=== PATIENT | female | born 1995 | race Caucasian/White ===

== ENCOUNTER 2017-05-16 23:08 | Emergency (ER) | payer OTHER ==
[~2017-05-16] VITALS: Ht 162.6 cm; Wt 50.0 kg
[~2017-05-16 23:08] MED LIST: ENDOCET 5-3251 EACH PO; KEFLEX500 MG PO; MOTRIN800 MG PO; Seroquel; ZANTAC150 MG PO
== END 2017-05-17 01:05 | disposition home or self-care (01) ==
LOC: EME 23:08
PROC: 0HQFXZZ Repair Right Hand Skin, External Approach (ICD-10-PCS; principal; 2017-05-16)
DX: S61.216A Laceration without foreign body of right little finger without damage to nail, initial encounter (principal); W26.0XXA Contact with knife, initial encounter
CPT/HCPCS: 99281; 99284

== ENCOUNTER 2017-05-19 14:31 | Emergency (ER) | payer OTHER ==
[~2017-05-19] VITALS: Ht 165.1 cm; Wt 54.8 kg
[2017-05-19] MEDS ORDERED: BACTRIM,SEPT1 TABLET PO (16:00)
[2017-05-19 16:10] VITALS: BP 127/77
== END 2017-05-19 16:12 | disposition home or self-care (01) ==
LOC: EME 14:31
DX: S61.216A Laceration without foreign body of right little finger without damage to nail, initial encounter (principal); L08.9 Local infection of the skin and subcutaneous tissue, unspecified; W26.0XXA Contact with knife, initial encounter; F17.200 Nicotine dependence, unspecified, uncomplicated
CPT/HCPCS: 99281; 99283

== ENCOUNTER 2017-07-22 15:31 | Emergency (ER) | payer OTHER ==
[~2017-07-22] VITALS: Ht 165.1 cm; Wt 54.5 kg
[~2017-07-22 15:31] MED LIST changes: +BACTRIM,SEPT1 TABLET PO
[2017-07-22 15:52] VITALS: BP 146/86
[2017-07-22] MEDS ORDERED: ULTRACET1 TABLET PO (16:25)
[2017-07-22] MEDS ORDERED: PERCOCET 5/31 TABLET PO (17:03)
== END 2017-07-22 16:50 | disposition home or self-care (01) ==
LOC: EME 15:31
DX: S66.901A Unspecified injury of unspecified muscle, fascia and tendon at wrist and hand level, right hand, initial encounter (principal); X58.XXXA Exposure to other specified factors, initial encounter; F17.200 Nicotine dependence, unspecified, uncomplicated
CPT/HCPCS: 99281; 99283

== ENCOUNTER 2017-08-05 10:46 | Emergency (ER) | payer OTHER ==
[~2017-08-05] VITALS: Ht 165.1 cm; Wt 49.9 kg
[~2017-08-05 10:46] MED LIST changes: +PERCOCET 5/31 TABLET PO; +ULTRACET1 TABLET PO
[2017-08-05] MEDS ORDERED: ENDOCET 5-3251 EACH PO (13:03)
[2017-08-05 13:34] VITALS: BP 162/99
== END 2017-08-05 13:35 | disposition home or self-care (01) ==
LOC: EME 10:46
DX: M79.644 Pain in right finger(s) (principal); M25.531 Pain in right wrist; M25.511 Pain in right shoulder; M79.89 Other specified soft tissue disorders; S56.12 Laceration of flexor muscle, fascia and tendon of other and unspecified finger at forearm level; W45.8XXS Other foreign body or object entering through skin, sequela; F17.200 Nicotine dependence, unspecified, uncomplicated
CPT/HCPCS: 99281; 99284

== ENCOUNTER 2017-08-29 11:28 | Emergency (ER) | payer OTHER ==
[~2017-08-29] VITALS: Ht 167.6 cm; Wt 52.4 kg
[2017-08-29 12:01] LABS: ADD MIUA? NO; BILIRUBIN NEGATIVE; BLOOD NEGATIVE; COLOR STRAW ((YELLOW)); GLUCOSE (STRIP) NEGATIVE; KETONES NEGATIVE; LEUKOCYTES NEGATIVE; NITRITE NEGATIVE; PROTEIN (STRIP) NEGATIVE; SPECIFIC GRAVITY 1.011 (1.000-1.030); UCUL ADDED? NO; UROBILINOGEN 0.2 MG/DL (0.2-1.0)
[2017-08-29 12:06] LABS: HEMATOCRIT 41.7 % (36.0-46.0); MCH 31.3 PG (29.0-34.0); MCHC 34.1 G/DL (30.0-36.0); MCV 92.1 FL (83-99); PLATELET COUNT 133 K/uL (156-360); RBC DIS.WIDTH-CV 11.9 % (11.8-14.6); RBC DIS.WIDTH-SD 40.6 % (39-53); RED BLOOD COUNT 4.53 M/uL (3.80-5.20); WHITE BLOOD COUNT 5.5 K/uL (4.1-10.2)
[2017-08-29 12:16] LABS: CHLORIDE 106 mEq/L (99-109); POTASSIUM 4.3 mEq/L (3.7-5.4); SODIUM 137 mEq/L (136-147)
[2017-08-29 12:18] LABS: GLUCOSE 109 mg/dL (70-99)
[2017-08-29 12:19] LABS: ANION GAP 7 MEQ/L (2-14)
[2017-08-29 12:20] LABS: TOTAL BILIRUBIN 0.2 mg/dL (0.0-1.0)
[2017-08-29 12:22] LABS: ALKALINE PHOSPHATASE 43 IU/L (3-129); GFR ESTIMATE (CALCULATED) > 59 mL/min/
[2017-08-29 12:23] LABS: UREA NITROGEN (BUN) 11 mg/dL (9-23)
[2017-08-29 15:32] VITALS: BP 108/63
[2017-09-03] MEDS ORDERED: KLONOPIN0.5 M1 PO (18:06)
[2017-09-03] MEDS ORDERED: VALTREX1000 MG PO (18:07)
[2017-09-03] MEDS ORDERED: RISPERIDONE0.5 MG PO (18:07)
== END 2017-08-29 15:33 | disposition home or self-care (01) ==
LOC: EME 11:28
DX: O09.11 Supervision of pregnancy with history of ectopic pregnancy, first trimester (principal); R10.2 Pelvic and perineal pain; O99.331 Smoking (tobacco) complicating pregnancy, first trimester; Z3A.01 Less than 8 weeks gestation of pregnancy; Z32.01 Encounter for pregnancy test, result positive; F17.200 Nicotine dependence, unspecified, uncomplicated
CPT/HCPCS: 76801; 80053; 81003; 84702; 85027; 99281; 99283

== ENCOUNTER → 2017-09-03 | Outpatient (CLI) | payer OTHER ==
[~2017-09-03] VITALS: Ht 166.4 cm; Wt 55.5 kg
[~2017-09-03] MED LIST changes: +KLONOPIN0.5 M1 PO; +RISPERIDONE0.5 MG PO; +VALTREX1000 MG PO
[2017-09-03 18:02] VITALS: BP 141/90
== END | disposition home or self-care (01) ==
LOC: IVINF 17:30
DX: Z31.82 Encounter for Rh incompatibility status (principal); O03.9 Complete or unspecified spontaneous abortion without complication
CPT/HCPCS: 96372

== ENCOUNTER 2017-10-12 12:14 | Emergency (ER) | payer OTHER ==
[~2017-10-12] VITALS: Ht 165.1 cm; Wt 51.5 kg
[2017-10-12 13:04] LABS: HEMATOCRIT 43.8 % (36.0-46.0); MCH 31.2 PG (29.0-34.0); MCV 91.6 FL (83-99); MEAN PLAT.VOLUME 11.1 uM^3 (9.5-12.4); PLATELET COUNT 150 K/uL (156-360); RBC DIS.WIDTH-SD 40.4 % (39-53); RED BLOOD COUNT 4.78 M/uL (3.80-5.20); WHITE BLOOD COUNT 5.4 K/uL (4.1-10.2)
[2017-10-12 13:20] LABS: CHLORIDE 105 mEq/L (99-109); SODIUM 136 mEq/L (136-147)
[2017-10-12 13:22] LABS: GLUCOSE 100 mg/dL (70-99)
[2017-10-12 13:24] LABS: ANION GAP 8 MEQ/L (2-14); TOTAL BILIRUBIN 0.6 mg/dL (0.0-1.0)
[2017-10-12 13:26] LABS: ALKALINE PHOSPHATASE 44 IU/L (3-129); GFR ESTIMATE (CALCULATED) > 59 mL/min/
[2017-10-12 13:27] LABS: UREA NITROGEN (BUN) 9 mg/dL (9-23)
[2017-10-12 13:38] LABS: QUANTITATIVE HCG 73.3 MIU/ML
[2017-10-12 13:50] LABS: ADD MIUA? YES; BILIRUBIN NEGATIVE; BLOOD NEGATIVE; COLOR YELLOW ((YELLOW)); GLUCOSE (STRIP) NEGATIVE; KETONES NEGATIVE; LEUKOCYTES NEGATIVE; NITRITE NEGATIVE; PROTEIN (STRIP) NEGATIVE; SPECIFIC GRAVITY 1.016 (1.000-1.030); UROBILINOGEN 0.2 MG/DL (0.2-1.0)
[2017-10-12 14:15] LABS: BACTERIA RARE /HPF; EPITHELIAL CELLS 1+ /HPF; MUCUS TRACE /LPF; RED BLOOD CELLS 0-5 /HPF (0-5); UCUL ADDED? NO; WHITE BLOOD CELLS 0-5 /HPF (0-5)
[2017-10-12 18:13] VITALS: BP 112/67
== END 2017-10-12 18:15 | disposition home or self-care (01) ==
LOC: EME 12:14
DX: O20.0 Threatened abortion (principal); F17.200 Nicotine dependence, unspecified, uncomplicated; Z3A.00 Weeks of gestation of pregnancy not specified
CPT/HCPCS: 76856; 80053; 81003; 83030; 84702; 85027; 86850; 86900; 86901; 99281; 99284; J2790

== ENCOUNTER → 2017-10-16 | Outpatient (CLI) | payer OTHER ==
[~2017-10-16] VITALS: Ht 166.4 cm; Wt 55.5 kg
[2017-10-16 16:09] VITALS: BP 114/71
== END | disposition home or self-care (01) ==
LOC: IVINF 15:30
DX: Z31.82 Encounter for Rh incompatibility status (principal); O20.0 Threatened abortion; Z3A.00 Weeks of gestation of pregnancy not specified
CPT/HCPCS: J2790

== ENCOUNTER → 2018-04-04 | Outpatient (CLI) | payer OTHER ==
[~2018-04-04] VITALS: Ht 165.1 cm; Wt 65.5 kg
[2018-04-04 08:47] VITALS: BP 125/82
== END | disposition home or self-care (01) ==
LOC: IVINF 08:30
DX: Z34.80 Encounter for supervision of other normal pregnancy, unspecified trimester (principal); Z31.82 Encounter for Rh incompatibility status; Z3A.00 Weeks of gestation of pregnancy not specified; Z67.91 Unspecified blood type, Rh negative
CPT/HCPCS: 96372; J2790

== ENCOUNTER 2018-06-03 18:51 | Outpatient (CLI) | payer OTHER ==
[2018-06-03 19:09] VITALS: BP 135/84
[2018-06-03 19:22] VITALS: BP 114/67
[2018-06-03] MEDS ORDERED: PRENATAL TABLE1 EAC3 PO (19:44)
[2018-06-03 20:07] LABS: BASOPHIL (%) 0.1 % (0-1); EOSINOPHIL (%) 0.4 % (0-5); HEMATOCRIT 30.8 % (36.0-46.0); HEMOGLOBIN 10.4 G/DL (11.9-15.5); IMMATURE GRANULOCYTE (%) 0.5 % (0.0-0.7); LYMPHOCYTE (%) 21.5 % (15-42); LYMPHOCYTE COUNT 1.7 K/uL (1.0-2.8); MCH 28.5 PG (29.0-34.0); MCHC 33.8 G/DL (30.0-36.0); MCV 84.4 FL (83-99); MONOCYTE (%) 6.4 % (3-12); MONOCYTE COUNT 0.5 K/uL (0-0.8); NEUTROPHIL (%) 71.1 % (45-76); NEUTROPHIL COUNT 5.7 K/uL (1.8-6.4); PLATELET COUNT 147 K/uL (156-360); RBC DIS.WIDTH-CV 12.6 % (11.8-14.6); RBC DIS.WIDTH-SD 38.5 % (39-53); RED BLOOD COUNT 3.65 M/uL (3.80-5.20)
[2018-06-03 20:25] LABS: ALBUMIN 3.4 G/DL (3.2-4.8); CHLORIDE 105 MEQ/L (99-109); POTASSIUM 4.1 MEQ/L (3.7-5.4); SODIUM 135 MEQ/L (136-147); TOTAL BILIRUBIN 0.4 MG/DL (0.0-1.0)
[2018-06-03 20:30] LABS: ALKALINE PHOSPHATASE 114 IU/L (3-129); ALT (GPT) 11 IU/L (3-49); AST (GOT) 12 IU/L (2-34); CREATININE 0.5 MG/DL (0.6-1.3); GFR ESTIMATE (CALCULATED) > 59 mL/min/; GLUCOSE 89 mg/dL (70-99); TOTAL PROTEIN 6.1 G/DL (6.4-8.3); UREA NITROGEN (BUN) 9 mg/dL (9-23)
[2018-06-03 20:43] VITALS: BP 105/64
[2018-06-03 22:00] LABS: AMPHETAMINE NEGATIVE (500 ng/mL); BARBITURATES NEGATIVE (200 ng/mL); BENZODIAZEPINES NEGATIVE (150 ng/mL); BUPRENORPHINE NEGATIVE (10 ng/mL); COCAINE NEGATIVE (150 ng/mL); METHADONE NEGATIVE (200 ng/mL); METHAMPHETAMINE NEGATIVE (500 ng/mL); OPIATES (MORPHINE) NEGATIVE (100 ng/mL); OXYCODONE NEGATIVE (100 ng/mL); PHENCYCLIDINE NEGATIVE (25 ng/mL); PROPOXYPHENE NEGATIVE (300 ng/mL); THC CANNABINOIDS NEGATIVE (50 ng/mL); TRICYCLIC ANTIDEPRESSANTS NEGATIVE (300 ng/mL)
[2018-06-04 00:29] LABS: APPEARANCE SL.HAZY ((CLEAR)); BILIRUBIN NEGATIVE; BLOOD NEGATIVE; COLOR STRAW ((YELLOW)); GLUCOSE (STRIP) NEGATIVE; KETONES NEGATIVE; LEUKOCYTES LARGE; NITRITE NEGATIVE; PROTEIN (STRIP) NEGATIVE; SPECIFIC GRAVITY 1.002 (1.000-1.030); UROBILINOGEN 0.2 MG/DL (0.2-1.0)
[2018-06-04 00:46] LABS: BACTERIA RARE /HPF; EPITHELIAL CELLS 1+ /HPF; MUCUS NONE SEEN /LPF; RED BLOOD CELLS NONE SEEN /HPF (0-5)
== END 2018-06-03 21:25 | disposition home or self-care (01) ==
LOC: LDRP-OP 18:51 → 2WEST 18:56
PROVIDERS: Advanced Practice Midwife
DX: O36.8130 Decreased fetal movements, third trimester, not applicable or unspecified (principal); O99.343 Other mental disorders complicating pregnancy, third trimester; F41.0 Panic disorder [episodic paroxysmal anxiety]; F90.9 Attention-deficit hyperactivity disorder, unspecified type; F31.9 Bipolar disorder, unspecified; O98.313 Other infections with a predominantly sexual mode of transmission complicating pregnancy, third trimester; A60.09 Herpesviral infection of other urogenital tract; O99.333 Smoking (tobacco) complicating pregnancy, third trimester; F17.290 Nicotine dependence, other tobacco product, uncomplicated; Z3A.36 36 weeks gestation of pregnancy
CPT/HCPCS: 59025; 80053; 81003; 85025; 87086; G0378

== ENCOUNTER 2018-06-11 16:45 | Emergency (ER) | payer OTHER ==
[~2018-06-11] VITALS: Ht 165.1 cm; Wt 63.7 kg
[~2018-06-11 16:45] MED LIST changes: +PRENATAL TABLE1 EAC3 PO
[2018-06-11 17:41] LABS: HEMATOCRIT 34.6 % (36.0-46.0); HEMOGLOBIN 11.8 G/DL (11.9-15.5); MCH 28.1 PG (29.0-34.0); MCHC 34.1 G/DL (30.0-36.0); MCV 82.4 FL (83-99); PLATELET COUNT 152 K/uL (156-360); RBC DIS.WIDTH-CV 12.8 % (11.8-14.6); RBC DIS.WIDTH-SD 38.1 % (39-53); WHITE BLOOD COUNT 10.7 K/uL (4.1-10.2)
[2018-06-11 17:53] LABS: CHLORIDE 106 mEq/L (99-109); POTASSIUM 4.2 mEq/L (3.7-5.4); SODIUM 139 mEq/L (136-147)
[2018-06-11 17:54] LABS: GLUCOSE 70 mg/dL (70-99)
[2018-06-11 17:58] LABS: CREATININE 0.6 mg/dL (0.6-1.3); GFR ESTIMATE (CALCULATED) > 59 mL/min/
[2018-06-11 17:59] LABS: UREA NITROGEN (BUN) 7 mg/dL (9-23)
[2018-06-11 19:09] VITALS: BP 119/84
== END 2018-06-11 19:10 | disposition home or self-care (01) ==
LOC: EME 16:45
PROVIDERS: Emergency Medicine
DX: O99.353 Diseases of the nervous system complicating pregnancy, third trimester (principal); G62.9 Polyneuropathy, unspecified; O99.343 Other mental disorders complicating pregnancy, third trimester; F41.9 Anxiety disorder, unspecified; F90.9 Attention-deficit hyperactivity disorder, unspecified type; O99.333 Smoking (tobacco) complicating pregnancy, third trimester; F17.210 Nicotine dependence, cigarettes, uncomplicated; Z3A.38 38 weeks gestation of pregnancy
CPT/HCPCS: 70551; 80048; 85027; 93971; 99281; 99284

== ENCOUNTER 2018-06-12 11:12 | Inpatient (IN) | payer OTHER ==
[2018-06-12] VITALS (12 sets, daily range): BP systolic 106–142; BP diastolic 68–93
[~2018-06-12] VITALS: Ht 165.1 cm; Wt 62.5 kg
[2018-06-12 18:38] LABS: BASOPHIL (%) 0.1 % (0-1); EOSINOPHIL (%) 0.4 % (0-5); HEMATOCRIT 32.7 % (36.0-46.0); HEMOGLOBIN 11.1 G/DL (11.9-15.5); IMMATURE GRANULOCYTE (%) 0.4 % (0.0-0.7); LYMPHOCYTE (%) 22.1 % (15-42); MCH 27.8 PG (29.0-34.0); MCHC 33.9 G/DL (30.0-36.0); MONOCYTE (%) 6.7 % (3-12); MONOCYTE COUNT 0.6 K/uL (0-0.8); NEUTROPHIL (%) 70.3 % (45-76); NEUTROPHIL COUNT 6.3 K/uL (1.8-6.4); PLATELET COUNT 154 K/uL (156-360); RBC DIS.WIDTH-CV 12.9 % (11.8-14.6); RBC DIS.WIDTH-SD 38.3 % (39-53); RED BLOOD COUNT 3.99 M/uL (3.80-5.20)
[2018-06-13] VITALS (16 sets, daily range): BP systolic 101–133; BP diastolic 59–89
[2018-06-14 06:04] LABS: BASOPHIL (%) 0.2 % (0-1); EOSINOPHIL (%) 1.1 % (0-5); EOSINOPHIL COUNT 0.1 K/uL (0-0.3); HEMATOCRIT 31.8 % (36.0-46.0); HEMOGLOBIN 10.2 G/DL (11.9-15.5); IMMATURE GRANULOCYTE (%) 0.7 % (0.0-0.7); LYMPHOCYTE (%) 28.9 % (15-42); LYMPHOCYTE COUNT 2.6 K/uL (1.0-2.8); MCH 26.6 PG (29.0-34.0); MCHC 32.1 G/DL (30.0-36.0); MONOCYTE (%) 6.3 % (3-12); MONOCYTE COUNT 0.6 K/uL (0-0.8); NEUTROPHIL (%) 62.8 % (45-76); NEUTROPHIL COUNT 5.7 K/uL (1.8-6.4); PLATELET COUNT 139 K/uL (156-360); RBC DIS.WIDTH-SD 39.3 % (39-53); RED BLOOD COUNT 3.83 M/uL (3.80-5.20); WHITE BLOOD COUNT 9.1 K/uL (4.1-10.2)
[2018-06-14 07:42] VITALS: BP 137/92
[2018-06-14] MEDS ORDERED: NICOTINE PATCH1 EAC1 TD (14:14)
[2018-06-14] MEDS ORDERED: Tylenol Extra Streng PO (14:15)
[2018-06-14] MEDS ORDERED: IBUPROFEN800 MG PO (14:15)
[2018-06-14 14:58] VITALS: BP 133/84
== END 2018-06-14 18:50 | disposition home or self-care (01) | DRG 774 ==
LOC: LDRP-OP 11:12 → 2WEST 11:13 → LDRP-OP 07-21 22:16
PROVIDERS: Advanced Practice Midwife
DX: O70.0 First degree perineal laceration during delivery (principal); A60.00 Herpesviral infection of urogenital system, unspecified; O98.32 Other infections with a predominantly sexual mode of transmission complicating childbirth; Z37.0 Single live birth; Z3A.38 38 weeks gestation of pregnancy; O99.334 Smoking (tobacco) complicating childbirth; F17.210 Nicotine dependence, cigarettes, uncomplicated
CPT/HCPCS: 59025; 70551; 80048; 83030; 85025; 85027; 86850; 86900; 86901; 93971; 99281; 99284; C1755; G0378; J0595; J2790; J3010; J7120

== ENCOUNTER 2018-07-10 11:10 | Emergency (ER) | payer OTHER ==
[~2018-07-10] VITALS: Ht 162.6 cm; Wt 55.8 kg
[~2018-07-10 11:10] MED LIST changes: +IBUPROFEN800 MG PO; +NICOTINE PATCH1 EAC1 TD; +Tylenol Extra Streng PO
[2018-07-10 12:47] LABS: HEMATOCRIT 39.5 % (36.0-46.0); MCH 27.4 PG (29.0-34.0); MCHC 32.7 G/DL (30.0-36.0); MCV 83.9 FL (83-99); PLATELET COUNT 113 K/uL (156-360); RBC DIS.WIDTH-CV 14.6 % (11.8-14.6); WHITE BLOOD COUNT 4.7 K/uL (4.1-10.2)
[2018-07-10 12:53] LABS: D-DIMER ELISA < 150.00 ng/mLDDU (<230)
[2018-07-10 13:02] LABS: CHLORIDE 104 mEq/L (99-109); SODIUM 138 mEq/L (136-147)
[2018-07-10 13:03] LABS: HEMOGLOBIN 12.9 G/DL (11.9-15.5); RED BLOOD COUNT 4.71 M/uL (3.80-5.20)
[2018-07-10 13:04] LABS: GLUCOSE 82 mg/dL (70-99)
[2018-07-10 13:07] LABS: CREATININE 0.7 mg/dL (0.6-1.3); GFR ESTIMATE (CALCULATED) > 59 mL/min/
[2018-07-10 13:08] LABS: UREA NITROGEN (BUN) 8 mg/dL (9-23)
[2018-07-10 13:18] LABS: TROP-I INTERPRETATION NEGATIVE; TROPONIN-I < 0.01 ng/mL (0.0-0.30)
[2018-07-10] MEDS ORDERED: MOTRIN600 MG PO (13:27)
[2018-07-10 13:41] VITALS: BP 119/82
== END 2018-07-10 13:45 | disposition home or self-care (01) ==
LOC: EME 11:10
PROVIDERS: Nurse Practitioner Family
DX: M54.9 Dorsalgia, unspecified (principal); R07.9 Chest pain, unspecified; R51 Headache; R06.00 Dyspnea, unspecified; F17.200 Nicotine dependence, unspecified, uncomplicated
CPT/HCPCS: 71046; 80048; 84484; 85027; 85379; 93005; 99281; 99284